=== PATIENT | female | born 1990 | race Native Hawaiian/Other Pacific Islander ===

== ENCOUNTER 2022-04-08 11:07 | Outpatient (CLI) | payer OTHER | END 2022-04-08 19:37 | disposition home or self-care (01) | LOC: LABW 11:07 | PROVIDERS: ATTEND Legal Medicine | DX: N91.2 Amenorrhea, unspecified (principal) | CPT/HCPCS: 36415; 84702 ==

== ENCOUNTER 2022-05-14 12:04 | Outpatient (CLI) | payer OTHER | END 2022-05-14 19:01 | disposition home or self-care (01) | LOC: LABW 12:04 | PROVIDERS: ATTEND Legal Medicine | DX: N91.2 Amenorrhea, unspecified (principal) | CPT/HCPCS: 36415; 84702 ==

== ENCOUNTER 2022-11-14 07:33 | Emergency (ER) | payer OTHER ==
[~2022-11-14] VITALS: Ht 165.1 cm; Wt 81.2 kg
[2022-11-14 07:36] VITALS: BP 108/54; TEMP 97.8
== END 2022-11-14 09:35 | disposition home or self-care (01) ==
LOC: ED 07:33
DX: O36.8130 Decreased fetal movements, third trimester, not applicable or unspecified (principal); M54.50 Low back pain, unspecified; Z3A.32 32 weeks gestation of pregnancy
CPT/HCPCS: 81002; 99284